=== PATIENT | female | born 1955 | race Caucasian/White ===

== ENCOUNTER 2016-12-19 11:39 | Emergency (ER) | payer OTHER ==
[~2016-12-19] VITALS: Ht 157.5 cm; Wt 54.4 kg
[~2016-12-19 11:39] MED LIST: AMLODIPINE BESY10 MG PO; MOTRIN 600 MG600 MG PO; PARLODEL5 MG PO; PERCOCET 325 MG1 TA2 PO; PREDNISONE10 M2 PO; SERTRALINE HYDR50 MG PO
[2016-12-19 12:00] VITALS: BP 122/74
--- NOTE | 2016-12-19 13:00 | ED SKIN/ALLERGY COMPLAINT ---
History of Present Illness General Chief Complaint: Skin Rash/ Abcess Stated Complaint: POISON JULIO Vital Signs & Intake/Output Vital Signs & Intake/Output Vital Signs Date Time Temp Pulse Resp B/P B/P Pulse O2 O2 Flow FiO2 Mean Ox Delivery Rate 12/19 1200 98.2 66 18 122/74 96 Room Air Room Air Allergies Coded Allergies: Penicillins (HIVES, ITCHING 12/19/16) venom-honey bee (BEE VENOM (HONEY BEE)) (PASS OUT 03/11/16) Reconcile Medications Amlodipine Besylate 10 MG TABLET 1 TAB PO DAILY HYPERTENTION (Reported) Bromocriptine Mesylate (Parlodel) 5 MG CAPSULE 1 TAB PO DAILY ANTIPARKINSONIAN (Reported) Ibuprofen (Motrin 600 MG Tab) 600 MG TABLET 1 TAB PO Q8H PRN PAIN with food OXYCODONE HCL/ACETAMINOPHEN (Percocet 5-325 MG Tablet) 325 MG/5 MG TAB 1-2 TAB PO Q6H PRN PAIN Prednisone 10 MG TABLET 0 PO DAILY poison julio day 1-3: 4 tabs po qd day 4-6: 3 tabs po qd day 7-9: 2 tabs po qd day 10-12: 1 tab po qd SERTRALINE HCL (Sertraline Hydrochloride) 50 MG TABLET 1 TAB PO DAILY AMXIETY (Reported) Triage Note: TRIAGE: 61 Y/O FEMALE PRESENTS C/O POISON JULIO TO FACE AT THIS TIME. 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
[2016-12-19] MEDS ORDERED: PREDNISONE20 M1 PO (13:08)
[2016-12-19] MEDS ORDERED: HYDROXYZINE HCL25 M2 PO (13:08)
--- NOTE | 2016-12-19 13:09 | ED SKIN/ALLERGY COMPLAINT ---
History of Present Illness General Chief Complaint: Skin Rash/ Abcess Stated Complaint: POISON HESHAM Source: patient, old records Exam Limitations: no limitations Vital Signs & Intake/Output Vital Signs & Intake/Output Vital Signs Date Time Temp Pulse Resp B/P B/P Pulse O2 O2 Flow FiO2 Mean Ox Delivery Rate 12/19 1200 98.2 66 18 122/74 96 Room Air Room Air Allergies Coded Allergies: Penicillins (HIVES, ITCHING 12/19/16) venom-honey bee (BEE VENOM (HONEY BEE)) (PASS OUT 03/11/16) Reconcile Medications Amlodipine Besylate 10 MG TABLET 1 TAB PO DAILY HYPERTENTION (Reported) Bromocriptine Mesylate (Parlodel) 5 MG CAPSULE 1 TAB PO DAILY ANTIPARKINSONIAN (Reported) Ibuprofen (Motrin 600 MG Tab) 600 MG TABLET 1 TAB PO Q8H PRN PAIN with food OXYCODONE HCL/ACETAMINOPHEN (Percocet 5-325 MG Tablet) 325 MG/5 MG TAB 1-2 TAB PO Q6H PRN PAIN Prednisone 10 MG TABLET 0 PO DAILY poison hesham day 1-3: 4 tabs po qd day 4-6: 3 tabs po qd day 7-9: 2 tabs po qd day 10-12: 1 tab po qd SERTRALINE HCL (Sertraline Hydrochloride) 50 MG TABLET 1 TAB PO DAILY AMXIETY (Reported) Triage Note: TRIAGE: 61 Y/O FEMALE PRESENTS C/O POISON HESHAM TO FACE AT THIS TIME. "IT'S GOING INTO MY MOUTH." Triage Nurses Notes Reviewed? yes Onset: Just prior to arrival Duration: hour(s):, constant, continues in ED Timing: recent history Severity: mild Location: face, extremities Possible Factors: exposure to allergen No Modifying Factors: none Associated Symptoms: change in skin texture, rash LMP (ages 10-50): post menopausal : No Patient currently breastfeeds: No HPI: 2 days prior to admission patient was clearing poison hesham. Several hours prior to admission she noted rash on the left side of her cheek extending to her lips and on her left hand. She denies fever chills nausea vomiting diarrhea abdominal pain chest pain shortness breath headache dysuria bleeding. Past History Travel History Traveled to [place] past 21 day No Medical History Any Pertinent Medical History? 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 No Review of Systems Review of Systems Constitutional: Reports: no symptoms. EENTM: Reports: no symptoms. Respiratory: Reports: no symptoms. Cardiovascular: Reports: no symptoms. GI: Reports: no symptoms. Genitourinary: Reports: no symptoms. Musculoskeletal: Reports: no symptoms. Skin: Reports: see HPI, rash. Neurological/Psychological: Reports: no symptoms. Hematologic/Endocrine: Reports: no symptoms. Immunologic/Allergic: Reports: no symptoms. All Other Systems: Reviewed and Negative Physical Exam Physical Exam General Appearance: well developed/nourished, alert, awake, anxious, mild distress Head: atraumatic Eyes: Bilateral: PERRL, EOMI. Ears, Nose, Throat: normal pharynx, normal ENT inspection, hearing grossly normal Neck: normal inspection, supple Respiratory: normal breath sounds Cardiovascular: regular rate/rhythm Peripheral Pulses: 4+ carotid (R), 4+ carotid (L) Gastrointestinal: soft, non-tender Back: normal inspection Extremities: normal inspection, normal range of motion, no edema Neurologic/Psych: awake, alert, oriented x 3, normal mood/affect Reflexes: 2+: bicep (R), bicep (L). Skin: intact, normal color, rash Skin Problem Location: face (left cheek), upper extremities (left thumb) Skin Problem Character: patchy, rash, vesicular Lymphatic: no anterior cervical valentina Progress Differential Diagnosis: abscess/cellulitis, allergic reaction, contact dermatitis Plan of Care: Current Medications Sig/Efraín Start time Last Medication Dose Stop Time Status Admin Prednisone 60 MG ONCE ONE 12/19 1315 UNVr 12/19 1316 Departure Departure Time of Disposition: 1306 Disposition: HOME OR SELF CARE Condition: Stable Clinical Impression Primary Impression: Allergic dermatitis due to poison hesham Referrals: PATIENT HAS NO PRIMARY CARE DR (PCP/Family) Departure Forms: Customer Survey General Discharge Information Prescriptions: Current Visit Scripts Prednisone 1 TAB PO BID #10 TAB Hydroxyzine HCl 1-2 TAB PO Q6P PRN itchy rash #60 TAB
== END 2016-12-19 13:16 ==
LOC: ERH 11:39
DX: L23.7 Allergic contact dermatitis due to plants, except food (principal)